=== PATIENT | female | born 1975 | race Caucasian/White ===

== ENCOUNTER 2022-04-08 23:23 | Emergency (ER) | payer MEDICAID, SELFPAY ==
[2022-04-08 23:25] VITALS: BP 193/115; PULSE 78; RESP 16; TEMP 36.8; O2SAT 100; BMI 28.1
--- NOTE | 2022-04-08 23:55 | PC.NURSE ---
assess pt at this time, advised due to high volume in ED there were no rooms available at this time and we would get her back as soon as one became available
--- NOTE | 2022-04-09 01:18 | PC.NURSE ---
pt advises she has high b/p but has been out of her meds for a week. Advises she is in the process of making an appt with her new PCP to get them refilled
--- NOTE | 2022-04-09 01:19 | XR_ITS ---
PROCEDURE INFORMATION: Exam: XR Left Wrist Exam date and time: 04/09/2022 1:23 AM Age: 47 years old Clinical indication: Pain; Wrist; Left; Patient HX: Esmei; Additional info: Pain with swelling TECHNIQUE: Imaging protocol: XR Left wrist. Views: 3 or more views. COMPARISON: No relevant prior studies available. FINDINGS: Bones/joints: No evidence of acute fracture or dislocation. No erosive disease. No significant degenerative change. Soft tissues: Diffuse soft tissue swelling. IMPRESSION: No acute bony abnormality is evident, but there is diffuse soft tissue swelling noted. No radiopaque foreign body.
[2022-04-09 02:26] VITALS: BP 169/109; PULSE 87; RESP 16; O2SAT 98
--- NOTE | 2022-04-09 02:57 | HMH.EDGENADL ---
ED Disposition Clinical Impression: Tenosynovitis Disposition: Home, Self-Care Condition on Discharge: Good Instructions: DI for Tenosynovitis Additional Instructions: use meds and see pcp for follow up Prescriptions: predniSONE [Prednisone 20mg Tab] 20 mg PO BID #10 tab Transmission Status: Pending to [id number] Referrals: Provider,Referral, [Primary Care Provider] - - Critical Care Critical Care Time: No Attestation: On 04/08/22, the high probability of a clinically significant, sudden or life threatening deterioration of the following system(s) required my full and direct attention, intervention and personal management. The time I documented below is in addition to time spent performing reported procedures but includes the following listed in this critical care notation. Medical Decision Making - Medical Records Medical records reviewed: Yes: I reviewed the patient's medical records. - Joel Inquiry Pt receiving controlled substance: No Vital Signs: 04/08/22 23:25 04/09/22 02:26 Temperature 98.3 F Temperature Source Oral Pulse Rate 87 Pulse Rate [Right] 78 Respiratory Rate 16 16 Blood Pressure 169/109 H Blood Pressure [Right Arm] 193/115 H Blood Pressure Mean [Right Arm] 141 Blood Pressure Source Automatic Cuff Blood Pressure Source [Right Arm] Automatic Cuff Blood Pressure Position Sitting Blood Pressure Position [Right Arm] Sitting 02 Sat by Pulse Oximetry 100 98 Oxygen Delivery Method Room Air Room Air - Lab Data Lab results reviewed: Yes: I reviewed the patient's lab results. - Radiology Data #1 Image(s): Wrist Image Reviewed: Yes I have reviewed radiologist's interpretation Preliminary Findings: Abnormal, No Fracture Seen (sts) Medical Decision Narrative: has tenosynovitis changes lt forearm General Adult HPI - General Chief complaint: PAIN Stated complaint: left wrist pain Time Seen by Provider: 04/09/22 02:57 Mode of Arrival: Ambulatory Source of Information: Patient, Medical Record Limitations: No Limitations Description of Symptoms (Recalled from ER Triage Doc. by RN): pt advises she has been having left wrist pain for the past two days. Denies any known actual injury. Some swelling noted - History of Present Illness HPI narrative: tender lt ulnar aspect of lt forearm - no def trauma but possible overuse - no other swollen jts and no autoimmune sx - Onset (ago): day(s) Location: upper extremity Severity: moderate Consistency: intermittent Associated symptoms: denies other symptoms - Related Data Previous Rx's Medication Instructions Recorded Amoxicillin/Potassium Clav 1 tab PO Q12H #20 tab 09/13/18 [Augmentin 875-125 Tablet] Guaifenesin/Dextromethorphan 10 ml PO Q4HP PRN #200 liquid 09/13/18 [Guaifenesin-Dm Solution] Loratadine/Pseudoephedrine 1 each PO DAILY #10 tab.er.24h 09/13/18 [Claritin-D 24 Hour Tablet] Benzonatate [Benzonatate 200mg Cap] 200 mg PO HS PRN #14 cap 09/16/18 Fluticasone Propionate [Flonase 2 spr NS DAILY #1 bottle 09/16/18 50mcg nasal spray 16gm] predniSONE [Prednisone 20mg 20 mg PO BID #10 tab 04/09/22 Tab] Allergies Allergy/AdvReac Type Severity Reaction Status Date / Time No Known Allergies Allergy Verified 09/12/18 23:25 [facility] History - Hepatitis A Screen Attestation statement:: This patient has been screened for Hepatitis A risk factors. I have reviewed the patient's past medical history: Yes Medical History: Reports:: Hypertension Denies:: Diabetes Mellitus Type 1, Diabetes Mellitus Type 2 Other Surgeries: Yes: Appendectomy, Other (foot) - Social History Smoking Status: Current every day smoker Tobacco Type: cigarettes Alcohol Intake: never ROS Obtained: Yes All systems reviewed & no additional complaints - Constitutional Constitutional: Denies fever(s) - Eyes Eyes: Denies change in vision - ENT Ears, Nose, Mouth, and Throat: Denies sore throat
[2022-04-09 03:17] VITALS: BP 154/89; PULSE 87; RESP 16; TEMP 36.7; O2SAT 97
--- NOTE | 2022-04-09 03:17 | PC.NURSE ---
LEFT WRIST SPLINT APPLIED. NEUROVASCULAR CHECK WNL.
== END 2022-04-09 03:19 | disposition home or self-care (01) ==
PROVIDERS: Emergency Provider Emergency Medicine
DX: M65.88 Other synovitis and tenosynovitis, other site; I10 Essential (primary) hypertension; Z72.0 Tobacco use; Z91.19 Patient's noncompliance with other medical treatment and regimen
CPT/HCPCS: 29125; 73110; 99283